=== PATIENT | female | born 1985 | race Caucasian/White ===

== ENCOUNTER 2021-09-05 16:44 | Emergency (ER) | payer OTHER ==
[2021-09-05 18:42] LABS: CARBON DIOXIDE,CO2 25.5 mmol/L (21.0-32.0)
== END 2021-09-05 20:17 | disposition home or self-care (01) ==
LOC: MW.ED 16:44
DX: R00.2 Palpitations (principal); R07.89 Other chest pain; F41.9 Anxiety disorder, unspecified
CPT/HCPCS: 36415; 71045; 71045-26; 80053; 84443; 84484; 84703; 85025; 93005; 93010; 99284; 99285

== ENCOUNTER 2021-09-08 12:40 | Emergency (ER) | payer OTHER ==
[2021-09-08] MEDS ORDERED: Sodium Chloride 0.9% 1,000 ML IV ONE (13:05)
[2021-09-08 14:29] LABS: CARBON DIOXIDE,CO2 25.7 mmol/L (21.0-32.0); POTASSIUM,K 3.5 mmol/L (3.5-5.1)
[2021-09-08] MEDS ORDERED: Metoprolol Tartrate 5 MG/5 ML SDV IVPUSH ONE (15:47)
== END 2021-09-08 17:15 | disposition home or self-care (01) ==
LOC: MW.ED 12:40
DX: R00.2 Palpitations (principal); Z79.899 Other long term (current) drug therapy; Z86.16 Personal history of COVID-19; Z20.822 Contact with and (suspected) exposure to COVID-19
CPT/HCPCS: 36415; 71045; 80053; 83735; 83835; 84443; 84484; 84703; 85025; 85379; 85610; 85730; 87635; 93005; 96361; 96374; 99285; J3490; J7030; U0002

== ENCOUNTER 2021-10-20 12:44 | Emergency (ER) | payer OTHER ==
[2021-10-20] MEDS ORDERED: Sodium Chloride 0.9% 2.5 ML Syringe FLUSH PRN (13:13)
[2021-10-20] MEDS ORDERED: Sodium Chloride 0.9% 1,000 ML IV ONE (13:13)
[2021-10-20] MEDS ORDERED: Sodium Chloride 0.9% 10 ML Syringe FLUSH PRN (13:13)
[2021-10-20 14:14] LABS: BLOOD UREA NITROGEN,BUN 12 mg/dL (7.0-18.0); CARBON DIOXIDE,CO2 26.9 mmol/L (21.0-32.0); CHLORIDE,CL 102 mmol/L (98-107); GLUCOSE RANDOM 158 mg/dL (74-106); POTASSIUM,K 3.7 mmol/L (3.5-5.1); SODIUM,NA 139 mmol/L (136-145)
[2021-10-20 14:17] LABS: ESTIMATED GFR 97 mL/min (>60)
== END 2021-10-20 17:08 | disposition home or self-care (01) ==
LOC: MW.ED 12:44
DX: R00.0 Tachycardia, unspecified (principal); T50.905A Adverse effect of unspecified drugs, medicaments and biological substances, initial encounter; Z86.16 Personal history of COVID-19
CPT/HCPCS: 36415; 70450; 71045; 80053; 83735; 84484; 84703; 85025; 85379; 85610; 96360; 99285; J3490; J7030; 93010; 99284

== ENCOUNTER 2021-10-30 05:28 | Emergency (ER) | payer OTHER ==
[2021-10-30] MEDS ORDERED: Aspirin 81 MG Tab.Chew PO ONE (05:46)
[2021-10-30 06:43] LABS: CARBON DIOXIDE,CO2 28.2 mmol/L (21.0-32.0); POTASSIUM,K 3.6 mmol/L (3.5-5.1)
== END 2021-10-30 09:01 | disposition home or self-care (01) ==
LOC: MW.ED 05:28
DX: R07.2 Precordial pain (principal); Z86.16 Personal history of COVID-19; Z20.822 Contact with and (suspected) exposure to COVID-19
CPT/HCPCS: 36415; 71045; 80053; 83735; 84443; 84484; 85025; 85379; 87635; 93005; 99285; A9270; U0002